=== PATIENT | male | born 1985 | race Caucasian/White ===

== ENCOUNTER 2017-10-18 02:29 | Emergency (ER) | payer OTHER ==
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
[2017-10-18] MEDS ORDERED: Bacitracin/Neomycin/Polymyxin B Oint 0.9 GM U/D Packet TOP ONE (03:00)
[2017-10-18] MEDS ORDERED: Diphtheria,Pertussis(Acell),Tetanus Vaccine 0.5 ML SDV IM ONE (03:00)
== END 2017-10-18 04:10 | disposition home or self-care (01) ==
LOC: LL.ED 02:29
DX: S51.811A Laceration without foreign body of right forearm, initial encounter (principal); Z23 Encounter for immunization; W45.8XXA Other foreign body or object entering through skin, initial encounter; Y99.0 Civilian activity done for income or pay; F17.210 Nicotine dependence, cigarettes, uncomplicated
CPT/HCPCS: 12004; 90471; 90715; 99284

== ENCOUNTER 2020-03-10 19:21 | Emergency (ER) | payer SELFPAY ==
[2020-03-10] MEDS ORDERED: Bacitracin/Neomycin/Polymyxin B Oint 0.9 GM U/D Packet TOP ONE (19:30)
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
== END 2020-03-10 20:05 | disposition home or self-care (01) ==
LOC: LL.ED 19:21
DX: S41.112A Laceration without foreign body of left upper arm, initial encounter (principal); F41.8 Other specified anxiety disorders; M15.0 Primary generalized (osteo)arthritis; Z71.6 Tobacco abuse counseling; F17.210 Nicotine dependence, cigarettes, uncomplicated; Y99.0 Civilian activity done for income or pay; W26.8XXA Contact with other sharp object(s), not elsewhere classified, initial encounter
CPT/HCPCS: 12001; 99282; J2001